=== PATIENT | male | born 1960 | race Caucasian/White ===

== ENCOUNTER 2020-03-11 05:49 | Emergency (ER) | payer OTHER ==
[2020-03-11] MEDS ORDERED: Diphtheria,Pertussis(Acell),Tetanus Vaccine 0.5 ML Syringe IM ONE (06:14)
[2020-03-11] MEDS ORDERED: Amoxicillin/Clavulanate K 875-125 MG Tab PO STA (06:16)
--- NOTE | 2020-03-11 06:24 | EDM.PDOC ---
ED HPI GENERAL MEDICAL PROBLEM - General Chief Complaint: Head Injury Stated Complaint: NAIL WENT THROUGH FACE Time Seen by Provider: 03/11/20 05:55 Source of Information: Reports: Patient History Limitations: Reports: No Limitations - History of Present Illness INITIAL COMMENTS - FREE TEXT/NARRATIVE: Mr. Yates is a very pleasant 59-year-old gentleman who works as a hot tar roofer helper, who now presents the ED after sustaining a puncture wound to his right ear around 5: 40 this morning, while at work. He states that he was hammering on some metal on a board, when the board, that had a nail sticking out of it, flipped up and struck him on the right side of his face. The nail punctured his right ear. He states that the nail struck his right hearing aid, breaking it. He removed the nail on his own. He is otherwise uninjured. Here in the ED, the patient is found to be hemodynamically stable, afebrile, saturating 98% on room air. The patient denies recent fever, chills, sore throat, ear pain, nasal or sinus congestion, cough, dyspnea, chest pain, palpitations, nausea, vomiting, constipation, diarrhea, abdominal pain, urinary symptoms, recent weight gain or weight loss, recent bloody bowel movements or black bowel movements, recent joint aches, headaches, or rashes. The patient does not recall when his last tetanus vaccination was. The patient's PCP is Dr. Justin De La Torre. His Urologist is Dr. Jermaine Barrett. Right Ear Pain Score (Numeric/FACES): 1 - Related Data Allergies Allergy/AdvReac Type Severity Reaction Status Date / Time No Known Allergies Allergy Verified 03/11/20 05:55 Home Meds: Home Meds Amoxicillin/Clavulanate K [Augmentin 875-125 MG] 1 tab PO Q12H #7 tablet [Rx] Past Medical History HEENT History: Reports: Hard of Hearing, Impaired Vision Other HEENT History: Wears glasses, bilateral hearing aids, parital dentures Cardiovascular History: Reports: High Cholesterol, Hypertension Musculoskeletal History: Reports: Osteoarthritis Endocrine/Metabolic History: Reports: Obesity/BMI 30+ Oncologic (Cancer) History: Reports: Prostate (s/p radical prostatectomy) - Past Surgical History HEENT Surgical History: Reports: Oral Surgery (Dentures) Male Surgical History: Reports: Prostatectomy (radical) Musculoskeletal Surgical History: Reports: Hip Replacement (bilateral), ORIF ( Right great toe) Social & Family History - Tobacco Use Smoking Status *Q: Current Every Day Smoker Years of Tobacco use: 45 Packs/Tins Daily: 0.5 Packs/Tins Daily Comment: Down from 2 ppd - Alcohol Use Alcohol Use History: Yes Days Per Week of Alcohol Use: 7 Number of Drinks Per Day: 2 Total Drinks Per Week: 14 Alcohol Use Frequency: Daily - Recreational Drug Use Recreational Drug Use: No - Living Situation & Occupation Living situation: Reports: , with Family (Son) Occupation: Employed ([employer]) ED ROS ENT - Review of Systems Review Of Systems: Comprehensive ROS is negative, except as noted in HPI. ED EXAM, ENT - Physical Exam Exam: See Below Exam Limited By: No Limitations General Appearance: Alert, WD/WN, No Apparent Distress Ears: Other (There is a small through and through puncture wound of the patient' s right tragus, which is not bleeding. There is a pool of blood at the distal inferior aspect of the patient's right ear canal, obscuring visualization of the base of his right tympanic membrane, indicating an injury to either his inferior distal canal, or to his inferior right tympanic membrane.) Course - Vital Signs Last Recorded V/S: Last Vital Signs Temp 36.5 C 03/11/20 05:55 Pulse 97 03/11/20 05:55 Resp 19 03/11/20 05:55 BP 131/72 03/11/20 05:55 Pulse Ox 98 03/11/20 05:55 - Orders/Labs/Meds Orders: Active Orders 24 hr Category Date Time Status Vaccines to be Administered [RC] PER UNIT ROUTINE Care 03/11/20 06:14 Ordered Meds: Medications Discontinued Medications Generic Name Dose Route Start Last Admin Trade Name Freq PRN Reason Stop Dose Admin Amoxicillin/Clavulanate Potassium 1 tab 03/11/20 06:16 03/11/20 06:20 Augmentin 875 Mg/125 Mg PO 03/11/20 06:17 1 tab ONETIME STA Administration Diphtheria/Tetanus/Acell Pertussis 0.5 ml 03/11/20 06:14 03/11/20 06:20 Adacel IM 03/11/20 06:15 0.5 ml .ONCE ONE Administration - Re-Assessments/Exams Free Text/Narrative Re-Assessment/Exam: 03/11/20 06:18 As above, the patient suffered a nail injury through and through his right tragus, but the nail also appears to have proceeded down his ear canal, causing an injury to the inferior aspect of his canal near the tympanic membrane. Because of blood pooling, I cannot see if his tympanic membrane is injured or not. For today's purposes, the patient will be given a tetanus vaccination, and I will start him on Augmentin to prevent an infection. I will refer him to ENT for further evaluation. Departure - Departure Time of Disposition: :21 Disposition: Home, Self-Care 01 Condition: Good Clinical Impression: Puncture wound of right ear - Discharge Information *PRESCRIPTION DRUG MONITORING PROGRAM REVIEWED*: Not Applicable *COPY OF PRESCRIPTION DRUG MONITORING REPORT IN PATIENT [place]LE[place]: Not Applicable Prescriptions: Amoxicillin/Clavulanate K [Augmentin 875-125 MG] 1 tab PO Q12H #7 tablet Instructions: Puncture Wound, [id number] Referrals: Justin De La Torre MD [Primary Care Provider] - Kenny Martin MD [Ordering Only Provider] - Jermaine Barrett MD [Ordering Only Provider] - Forms: ED Department Discharge Additional Instructions: You were seen in the emergency room after your right ear sustained a puncture wound by a nail. On examination, you have a [id number] puncture wound to your right tragus, but the tip of the nail appears to have gone on to injur your right ear canal near, or even possibly involving, your right tympanic membrane. You were given a tetanus vaccination in the ER. You have been started on the antibiotic Augmentin, and a prescription for Augmentin has been sent to the [facility] in [place]. Take 1 tablet of Augmentin every 12 hours, starting this evening, 03/11/2020, as prescribed. Finish the entire prescription unless told otherwise by your doctor. We strongly recommend that you follow-up with the ENT Dr. Kenny Martin, as soon as possible. Make sure that the computer artist knows that you are following up from the ER, and that we recommend that you be seen today. If any other problems, please do not hesitate to return to the ER. Sepsis Event Note - Evaluation Sepsis Screening Result: No Definite Risk - Focused Exam Vital Signs: Vital Signs Temp Pulse Resp BP Pulse Ox 03/11/20 05:55 36.5 C 97 19 131/72 98 Date Exam was Performed: 03/11/20 Time Exam was Performed: 06:42 - My Orders Last 24 Hours: My Active Orders 03/11/20 06:14 Vaccines to be Administered [RC] PER UNIT ROUTINE - Assessment/Plan Last 24 Hours: My Active Orders 03/11/20 06:14 Vaccines to be Administered [RC] PER UNIT ROUTINE
== END 2020-03-11 06:41 | disposition home or self-care (01) ==
LOC: SUPCPDRO 05:49 → JD.ED 05:49
DX: S01.331A Puncture wound without foreign body of right ear, initial encounter (principal); F17.210 Nicotine dependence, cigarettes, uncomplicated; I10 Essential (primary) hypertension; E66.9 Obesity, unspecified; Z23 Encounter for immunization; W20.8XXA Other cause of strike by thrown, projected or falling object, initial encounter; Y92.009 Unspecified place in unspecified non-institutional (private) residence as the place of occurrence of the external cause
CPT/HCPCS: 90471; 90715; 99283; A9270; 99282